=== PATIENT | female | born 1940 | race Caucasian/White ===

== ENCOUNTER 2020-02-15 21:00 | Emergency (ER) | payer MEDICARE ==
[~2020-02-15] VITALS: Ht 149.9 cm; Wt 65.0 kg
[2020-02-15 21:07] VITALS: TEMP 97.4
[2020-02-15 21:27] LABS: BASO # 0.1 (0.0-0.2); BASO % 0.6 % (0.0-2.0); EOS # 0.2 (0.0-0.7); EOS % 1.6 % (0-4.0); GRAN # 7.2 (1.4-6.5); GRAN % 76.6 % (42.2-75.2); HEMATOCRIT 43.8 % (37.0-47.0); HEMOGLOBIN 14.5 g/dl (12.5-16.0); LYMPH # 1.3 (1.2-3.4); LYMPH % 14.2 % (20.0-51.0); MEAN CELL VOLUME 93 fl (80.0-100.0); MEAN CORPUSCULAR HEMOGLOBIN 31 pg (27.0-31.0); MEAN CORPUSCULAR HGB CONC 33 g/dl (33.0-37.0); MEAN PLATELET VOLUME 9.7 fl (7.4-10.4); MONO # 0.6 (0.1-0.6); MONO % 6.5 % (1.7-9.3); PLATELET COUNT 211 K/mm3 (130-400); REDCELL DISTRIBUTION WIDTH-CV 14.6 % (11.5-14.5)
[2020-02-15 21:37] LABS: ALANINE AMINOTRANSFERASE 11 U/L (4-34); ALBUMIN 4.8 gm/dL (3.5-5.0); ALKALINE PHOSPHATASE 123 U/L (50-136); ANION GAP 11 mmol/L (7-16); AST,SGOT 22 U/L (15-37); BILIRUBIN,TOTAL 0.5 mg/dL (0.0-1.0); BLOOD UREA NITROGEN 25 mg/dL (7-17); CALCIUM 10.9 mg/dL (8.4-10.2); CARBON DIOXIDE 29 mmol/L (22-30); CHLORIDE 99 mmol/L (98-107); CREATININE, serum 0.95 (0.52-1.25); GLUCOSE 190 mg/dL (74-106); POTASSIUM 4.4 mmol/L (3.4-5.0); SODIUM 138 mmol/L (137-145); TOTAL PROTEIN 8.1 gm/dL (6.4-8.2)
[2020-02-15 21:40] LABS: INR 0.9 (0.8-3.0); PROTHROMBIN TIME 10.5 SECONDS (9.7-12.8)
[2020-02-15 21:43] LABS: PARTIAL THROMBOPLASTIN TIME 33.8 SECONDS (26.0-37.0)
[2020-02-15 21:51] LABS: TROPONIN-I < 0.012 ng/mL (0.000-0.035)
[2020-02-16 01:30] VITALS: BP 191/89; PULSE 60
== END 2020-02-16 01:30 | disposition home or self-care (01) ==
LOC: COL.ER 21:00
PROVIDERS: Emergency Medicine
DX: K44.9 Diaphragmatic hernia without obstruction or gangrene (principal); R10.13 Epigastric pain; Z98.61 Coronary angioplasty status; Z87.74 Personal history of (corrected) congenital malformations of heart and circulatory system
CPT/HCPCS: J7030; Q9967

== ENCOUNTER 2021-07-06 13:54 | Inpatient (IN) | payer MEDICARE ==
[~2021-07-06] VITALS: Ht 149.9 cm; Wt 63.6 kg
[2021-07-06] VITALS (288 sets, daily range): BP systolic 154–176; BP diastolic 52–73; PULSE 38–40; TEMP 97.6–97.8; O2SAT 86–100
[2021-07-06 15:23] LABS: BASO # 0.1 K/mm3 (0.0-0.2); BASO % 0.9 % (0.0-2.0); EOS # 0.1 K/mm3 (0.0-0.7); GRAN # 3.7 K/mm3 (1.4-6.5); HEMATOCRIT 41.8 % (37.0-47.0); HEMOGLOBIN 13.8 g/dl (12.5-16.0); LYMPH # 1.2 K/mm3 (1.2-3.4); LYMPH % 21.4 % (20.0-51.0); MEAN CELL VOLUME 93 fl (80.0-100.0); MEAN CORPUSCULAR HEMOGLOBIN 31 pg (27-31); MEAN CORPUSCULAR HGB CONC 33 g/dl (33.0-37.0); MEAN PLATELET VOLUME 9.8 fl (7.4-10.4); MONO # 0.5 K/mm3 (0.1-0.6); MONO % 8.3 % (1.7-9.3); PLATELET COUNT 193 K/mm3 (130-400); RED BLOOD COUNT 4.48 M/mm3 (4.10-5.30); REDCELL DISTRIBUTION WIDTH-CV 14.6 % (11.5-14.5)
[2021-07-06 15:46] LABS: INR 1.1 (0.8-3.0); PROTHROMBIN TIME 11.7 SECONDS (9.7-12.8)
[2021-07-06 15:47] LABS: ALANINE AMINOTRANSFERASE 12 U/L (0-55); ALBUMIN 4.1 gm/dL (3.4-4.8); ALKALINE PHOSPHATASE 101 U/L (40-150); ANION GAP 11 mmol/L (7-16); AST,SGOT 17 U/L (5-34); BILIRUBIN,TOTAL 0.5 mg/dL (0.2-1.2); BLOOD UREA NITROGEN 14 mg/dL (10-20); CALCIUM 10.3 mg/dL (8.4-10.2); CARBON DIOXIDE 22 mmol/L (23-31); CHLORIDE 104 mmol/L (98-107); CREATININE, serum 1.02 mg/dL (0.57-1.11); GLUCOSE 116 mg/dL (70-99); SODIUM 137 mmol/L (136-145); TOTAL PROTEIN 7.4 gm/dL (6.2-8.1)
[2021-07-06 15:48] LABS: PARTIAL THROMBOPLASTIN TIME 32.9 SECONDS (26.0-37.0)
[2021-07-06 15:55] LABS: TROPONIN-I < 0.010 ng/mL (0.00-0.033)
--- NOTE | 2021-07-06 16:35 | NUR ---
RECEIVED REPORT FROM TANVI ZAMORA IN ER. AWAITING ARRIVAL OF PT TO ICU 5.
--- NOTE | 2021-07-06 16:48 | NUR ---
PT ARRVIES TO ICU 5 VIA STRETCHER AND TRASNFERS SELF TO ICU BED, STEADY GAIT NOTED. PT ON RA. PLACED ON BEDSIDE CONTINUOUS MONITOR. VSS. CALL LIGHT WITHIN REACH, DEMONSTRATES UNDERSTANDING OF USE. TYRON, SISTER IN LAW BROUGHT TO BEDSIDE AND EXPLAINED VISITING POLICY TO PT AND TYRON, VERBALIZED UNDERSTANDING. PT'S PURSE PLACED IN CABINET IN ROOM. CELLPHONE REMAINS IN PT'S POSSESSION.
[2021-07-06] MEDS ORDERED: LEVOXYL0.075 MG PO (17:28)
[2021-07-06] MEDS ORDERED: DIOVAN320 MG PO (17:29)
[2021-07-06] MEDS ORDERED: HCTZ12.5TAB PO (17:29)
[2021-07-06] MEDS ORDERED: WELLBUTRIN XL150 MG PO (17:32)
[2021-07-06] MEDS ORDERED: PRILOSEC 20MG20 MG PO (17:33)
[2021-07-06] MEDS ORDERED: VITAMIN D250 MCG PO (17:34)
[2021-07-06] MEDS ORDERED: OCUVITE1 TA1 PO (17:34)
[2021-07-06] MEDS ORDERED: NORVASC 10MG10 MG PO (17:37)
[2021-07-06] MEDS ORDERED: DESYREL 50MG50 MG PO (17:38)
[2021-07-06] MEDS ORDERED: ZYLOPRIM 100MG100 MG PO (17:39)
[2021-07-06] MEDS ORDERED: ZYRTEC 10MG10 MG PO (17:40)
[2021-07-06] MEDS ORDERED: STOOL SOFTENER100 M2 PO (17:40)
[2021-07-06] MEDS ORDERED: NORCO 325 MG-7.1 TAB PO (17:41)
[2021-07-07] VITALS (573 sets, daily range): BP systolic 132–166; BP diastolic 57–99; PULSE 33–59; TEMP 97.5–97.8; O2SAT 78–100
[2021-07-07 06:45] LABS: CALCIUM 10.1 mg/dL (8.4-10.2); CREATININE, serum 0.88 mg/dL (0.57-1.11)
--- NOTE | 2021-07-07 07:00 | NUR ---
RECEIVED REPORT FROM TANVI BURGOS. PT SITTING UP IN BED WATCHING TV ON RA. VSS. CALL LIGHT WITHIN REACH.
--- NOTE | 2021-07-07 09:57 | NUR ---
SW met with pt who stated her preference to return home once medically stable. The pt states she lives at home, alone. She is a . The pt states she is independent on all ADLs and does use a blood pressure cup. The pt states she does not have a DPOA, but would like to complete one. The pt PCP is Mary Montes and [facility]. Pt completed DPOA-HC and RN & SW witness and pt placed Bob Kerr [phone] as DPOA-HC and Jessica, daughter as altrnate [phone]. SW placed copy in chart and gave pt 3 copies.
[2021-07-08] VITALS (139 sets, daily range): BP systolic 39–181; BP diastolic 24–96; PULSE 32–120; TEMP 34.4–34.6; O2SAT 36–100
[2021-07-08 06:19] LABS: HEMOGLOBIN 12.4 g/dl (12.5-16.0); MEAN CELL VOLUME 92 fl (80.0-100.0); MEAN CORPUSCULAR HEMOGLOBIN 31 pg (27-31); MEAN CORPUSCULAR HGB CONC 34 g/dl (33.0-37.0); MEAN PLATELET VOLUME 9.8 fl (7.4-10.4); PLATELET COUNT 174 K/mm3 (130-400); RED BLOOD COUNT 4.02 M/mm3 (4.10-5.30); REDCELL DISTRIBUTION WIDTH-CV 14.4 % (11.5-14.5)
[2021-07-08 06:35] LABS: CALCIUM 10.3 mg/dL (8.4-10.2); CREATININE, serum 1.14 mg/dL (0.57-1.11); POTASSIUM 4.7 mmol/L (3.5-4.5)
[2021-07-08 06:36] LABS: HEMATOCRIT 36.9 % (37.0-47.0)
--- NOTE | 2021-07-08 10:56 | NUR ---
Commercial Loan Collection Officer contacted Hospitalist and requested PT/OT orders.
--- NOTE | 2021-07-08 13:35 | NUR ---
SEE MERGE FOR ALL MEDICATION ADMINISTRATION TIMES/DOSAGES AND INTRA/POST PROCEDURE SEDATION ASSESSMENT.
--- NOTE | 2021-07-08 16:00 | NUR ---
Pt arrived with CathLab team. Pt lethargic, able to follow commands but unable to answer orientation questions. Hypotension noted, MD Jacob notified of pt arrival. Pt's son Bob at bedside. Education provided on plan. Levophed initated to IV started by CVL RN to right antecubital. Shortly after initiating gtt, pt begain complaining of pain to IV site, gtt paused and IV was unable to flush and was leaking. MD Kiah called for central line placement ordered by MD Jacob. MD Shanice called and notifed of pt status, MD states he will be by to assess pt soon. Multiple attempts made to start peripheral IV - 3 different staff memebers with a total of 6 attempts made with no success (pt's prior IVs were compromised in cathlab) 1630 MD Kiah at bedside - obtained consent from pt's son Bob. Time out completed, all in agreement. 1635 MD Shanice at bedside - pericardiocentesis catheter stopcock unclamped by MD Shanice and set to depended drainage - drainage bag began to quickly drain bright red blood. MD Shanice requesting pt be transfered to higher level of care - Electronic News Gathering Editor at bedside and has began the transfer process Central line OK for use stated by MD Kiah at 1650. Levophed and IV fluid boluses initiated. 1710 Vasopressin gtt added - Anesthesia paged for Arterial line placement - consent obtained from Bob 1745 CONCRETE SMOOTHER at bedside for line placement. Timeout completed - all in agreement 1800 Pt awake alert and oriented asking "what happended" pt educated and states understanding. 1800 Bob encouraged by Electronic News Gathering Editor TANVI Downey to call in other family memebers who are local to be with pt. MD Jacob, TANVI Downey, Bob and myself discussed Code Status with pt - pt spoke with Bob and agreed to continue aggressive treatment, but change Code Status to DNR with no CPR or Intubation if necessary. 1837 NeoSynepherine gtt added d/t continued hypotension despite maximum Levophed dose 1900 Pt has [facility] team standing by, no facility has accepted pt transfer as of this time. 1900 A total of 1100mL of blood noted in pericardiocentesis drainage bag 191 Report given to TANVI James
[2021-07-08 17:04] LABS: BASO # 0.1 K/mm3 (0.0-0.2); BASO % 0.6 % (0.0-2.0); EOS % 0.3 % (0.0-4.0); GRAN # 9.2 K/mm3 (1.4-6.5); GRAN % 68.5 % (42.2-75.2); HEMOGLOBIN 11.6 g/dl (12.5-16.0); LYMPH # 3.1 K/mm3 (1.2-3.4); MEAN CELL VOLUME 95 fl (80.0-100.0); MEAN CORPUSCULAR HEMOGLOBIN 31 pg (27-31); MEAN CORPUSCULAR HGB CONC 33 g/dl (33.0-37.0); MEAN PLATELET VOLUME 9.7 fl (7.4-10.4); MONO # 0.9 K/mm3 (0.1-0.6); MONO % 6.4 % (1.7-9.3); PLATELET COUNT 220 K/mm3 (130-400); RED BLOOD COUNT 3.76 M/mm3 (4.10-5.30); REDCELL DISTRIBUTION WIDTH-CV 14.6 % (11.5-14.5)
[2021-07-08 17:10] LABS: HEMATOCRIT 35.6 % (37.0-47.0)
[2021-07-08 17:30] LABS: ALBUMIN 3.4 gm/dL (3.4-4.8); BILIRUBIN,TOTAL 0.7 mg/dL (0.2-1.2); CALCIUM 9.9 mg/dL (8.4-10.2); CREATININE, serum 1.56 mg/dL (0.57-1.11); POTASSIUM 4.7 mmol/L (3.5-4.5); TOTAL PROTEIN 5.6 gm/dL (6.2-8.1)
--- NOTE | 2021-07-08 18:00 | NUR ---
16F Amaro Catheter inserted by TANVI Rucker - clear yellow urine return noted - pt tolerated insertion well
--- NOTE | 2021-07-08 18:53 | NUR ---
Pt's daughter, son-in-law and son at bedside
[2021-07-08 19:43] LABS: HEMATOCRIT 37.8 % (37.0-47.0); HEMOGLOBIN 11.8 g/dl (12.5-16.0)
[2021-07-08 19:59] LABS: INR 1.6 (0.8-3.0); PROTHROMBIN TIME 17.6 SECONDS (9.7-12.8)
--- NOTE | 2021-07-08 20:55 | NUR ---
Verbal order obtained from Carleen LINDER and Dr. James to increase epi gtt to 0.1.
[2021-07-08 21:12] LABS: ARTERIAL BLD GAS O2 SATURATION 97.8 % (92-100); ARTERIAL BLD GAS TCO2 CT 9.1; ARTERIAL BLOOD GAS BASE EXCESS -19.7 (-2-2); ARTERIAL BLOOD GAS HCO3 8.3 meq/L (22-26); ARTERIAL BLOOD GAS PCO2 26.8 mmHg (35-45); ARTERIAL BLOOD GAS PO2 120.8 mmHg (80-100)
[2021-07-08 21:14] LABS: ARTERIAL BLOOD GAS pH 7.11 (7.35-7.45)
--- NOTE | 2021-07-08 22:30 | NUR ---
1899 Report received from TANVI Marquis. Patient family at bedside. Dr. James and Carleen LINDER in unit. Patient current on levophed, vasopressin, and neosynephrine. Assessment complete. Lung sounds are diminished. Patient reporting pain from laying flat. Patient has right femoral TLC in place. Pericardial drain bag full. 1900: Unit of FFP started 1929: Pericardial drainage bag changed. Unable to obtain temp on patient. Rectal temp probe placed. Patient temp 94 degrees. Obtaining jarrett hugger per verbal order from Carleen LINDER. Labs and ABG drawn. 1947: Unit of PRBC started for patient per orders from Dr. James. 1999: ABG results back. ph 7.1. Patient given sodium bicarb push per verbal orders from Dr. James and Carleen LINDER. 2010: Ddimer results given to Dr. James while in room. 2033: Another unit of FFP started per orders. 2039: Patient reporting shortness of breath. Patient lung sounds wheezing. Per Carleen place on bipap. Respiratory contacted and in room placing bipap. Patient on 55% fiO2. 2044: [facility] arrived. Report was given to TANVI Gibbs. 2099: Unit of PRBC obtained and given to [facility] Nurse. TANVI Gibbs. Also mixed gtts to send with [facility]. 2144: [facility]isted [facility] with transfer of patient onto stretcher. 2202: [facility] leaving. 0: Report called to TANVI Ventura and Yancy Cristina. During this time. Family remained at bedside with patient. Family was given updates as new information arrived. All questions answered.
== END 2021-07-08 22:03 | disposition short-term general hospital (02) | DRG 242 ==
LOC: COL.ER 13:54 → ICU 14:59
PROVIDERS: Emergency Medicine; Internal Medicine; ADMIT Internal Medicine
PROC: 0JH606Z Insertion of Pacemaker, Dual Chamber into Chest Subcutaneous Tissue and Fascia, Open Approach (ICD-10-PCS; principal; 2021-07-08)
PROC: 02H63JZ Insertion of Pacemaker Lead into Right Atrium, Percutaneous Approach (ICD-10-PCS; 2021-07-08)
PROC: 02HK3JZ Insertion of Pacemaker Lead into Right Ventricle, Percutaneous Approach (ICD-10-PCS; 2021-07-08)
PROC: 0W9D30Z Drainage of Pericardial Cavity with Drainage Device, Percutaneous Approach (ICD-10-PCS; 2021-07-08)
PROC: 06HM33Z Insertion of Infusion Device into Right Femoral Vein, Percutaneous Approach (ICD-10-PCS; 2021-07-08)
PROC: 5A09357 Assistance with Respiratory Ventilation, Less than 24 Consecutive Hours, Continuous Positive Airway Pressure (ICD-10-PCS; 2021-07-08)
DX: I44.2 Atrioventricular block, complete (principal); R57.8 Other shock; J96.01 Acute respiratory failure with hypoxia; Q21.0 Ventricular septal defect; I31.3 Pericardial effusion (noninflammatory); D62 Acute posthemorrhagic anemia; I08.3 Combined rheumatic disorders of mitral, aortic and tricuspid valves; I95.9 Hypotension, unspecified; S43.429A Sprain of unspecified rotator cuff capsule, initial encounter; Z20.822 Contact with and (suspected) exposure to COVID-19; R00.1 Bradycardia, unspecified; I10 Essential (primary) hypertension; E03.9 Hypothyroidism, unspecified; E87.70 Fluid overload, unspecified; F32.A Depression, unspecified; G89.29 Other chronic pain; M54.9 Dorsalgia, unspecified; E78.5 Hyperlipidemia, unspecified; X58.XXXA Exposure to other specified factors, initial encounter
CPT/HCPCS: 99222-AI; 99231-AI; 99233-AI; 99239; J0690; J1650; J2250; J2370; J2597; J3010; J7030; J7050; J7060; J7120; L1830; P9016

== ENCOUNTER 2021-11-19 17:49 | Observation (INO) | payer MEDICARE ==
[~2021-11-19] VITALS: Ht 149.9 cm; Wt 57.2 kg
[~2021-11-19 17:49] MED LIST: DESYREL 50MG50 MG PO; DIOVAN320 MG PO; HCTZ12.5TAB PO; LEVOXYL0.075 MG PO; NORCO 325 MG-7.1 TAB PO; NORVASC 10MG10 MG PO; OCUVITE1 TA1 PO; PRILOSEC 20MG20 MG PO; STOOL SOFTENER100 M2 PO; VITAMIN D31000 I1 PO; WELLBUTRIN XL150 MG PO; ZYLOPRIM 100MG100 MG PO; ZYRTEC 10MG10 MG PO
[2021-11-19 19:58] LABS: BASO % 0.6 % (0.0-2.0); EOS # 0.1 K/mm3 (0.0-0.7); EOS % 1.1 % (0.0-4.0); GRAN # 5.2 K/mm3 (1.4-6.5); GRAN % 73.9 % (42.2-75.2); HEMATOCRIT 35.3 % (37.0-47.0); HEMOGLOBIN 10.9 g/dl (12.5-16.0); LYMPH # 0.9 K/mm3 (1.2-3.4); LYMPH % 13.4 % (20.0-51.0); MEAN CELL VOLUME 72 fl (80.0-100.0); MEAN CORPUSCULAR HEMOGLOBIN 22 pg (27-31); MEAN CORPUSCULAR HGB CONC 31 g/dl (33.0-37.0); MEAN PLATELET VOLUME 8.9 fl (7.4-10.4); MONO # 0.8 K/mm3 (0.1-0.6); MONO % 10.7 % (1.7-9.3); PLATELET COUNT 291 K/mm3 (130-400); RED BLOOD COUNT 4.88 M/mm3 (4.10-5.30); REDCELL DISTRIBUTION WIDTH-CV 21.7 % (11.5-14.5)
[2021-11-19 20:00] VITALS: BP 147/86; PULSE 88; TEMP 98.3
[2021-11-19 20:17] LABS: ALANINE AMINOTRANSFERASE 15 U/L (0-55); ALKALINE PHOSPHATASE 82 U/L (40-150); ANION GAP 13 mmol/L (7-16); AST,SGOT 29 U/L (5-34); BILIRUBIN,TOTAL 0.8 mg/dL (0.2-1.2); BLOOD UREA NITROGEN 18 mg/dL (10-20); CALCIUM 9.9 mg/dL (8.4-10.2); CARBON DIOXIDE 22 mmol/L (23-31); CHLORIDE 96 mmol/L (98-107); CREATININE, serum 0.88 mg/dL (0.57-1.11); GLUCOSE 112 mg/dL (70-99); POTASSIUM 3.7 mmol/L (3.5-4.5); SODIUM 131 mmol/L (136-145); TOTAL PROTEIN 7.2 gm/dL (6.2-8.1)
[2021-11-19 20:24] LABS: TROPONIN-I < 0.010 ng/mL (0.00-0.033)
[2021-11-19] MEDS ORDERED: ZEBETA10 MG PO (23:03)
[2021-11-19] MEDS ORDERED: DIOVAN 80MG80 MG PO (23:12)
[2021-11-20] VITALS (7 sets, daily range): BP systolic 132–151; BP diastolic 69–77; PULSE 85–104; TEMP 97.6–98.3
[2021-11-20 03:36] LABS: COLLECTION METHOD CLEAN CATCH
[2021-11-20 03:46] LABS: PH 7 (5-8); SQUAMOUS EPITHELIAL 0-2 /hpf (0-10); URINE APPEARANCE Clear (CLEAR/HAZY); URINE BACTERIA None Seen /hpf (NONE SEEN); URINE BILIRUBIN Negative (NEGATIVE); URINE BLOOD Negative (NEGATIVE); URINE COLOR Yellow (YELLOW); URINE GLUCOSE Negative (NEGATIVE); URINE KETONE Negative (NEGATIVE); URINE LEUKOCYTE ESTERASE Negative (NEGATIVE); URINE NITRATE Negative (NEGATIVE); URINE PROTEIN(semi-quant) Negative (NEGATIVE); URINE RBC 0-2 /hpf (0-2); URINE UROBILINOGEN Negative (NEGATIVE)
[2021-11-20 05:21] LABS: BASO % 0.7 % (0.0-2.0); EOS % 0.7 % (0.0-4.0); GRAN # 4.4 K/mm3 (1.4-6.5); GRAN % 71.9 % (42.2-75.2); HEMOGLOBIN 10.2 g/dl (12.5-16.0); LYMPH # 0.9 K/mm3 (1.2-3.4); LYMPH % 14.8 % (20.0-51.0); MEAN CELL VOLUME 74 fl (80.0-100.0); MEAN CORPUSCULAR HEMOGLOBIN 23 pg (27-31); MEAN CORPUSCULAR HGB CONC 31 g/dl (33.0-37.0); MEAN PLATELET VOLUME 8.6 fl (7.4-10.4); MONO # 0.7 K/mm3 (0.1-0.6); MONO % 11.6 % (1.7-9.3); PLATELET COUNT 239 K/mm3 (130-400); RED BLOOD COUNT 4.44 M/mm3 (4.10-5.30); REDCELL DISTRIBUTION WIDTH-CV 21.4 % (11.5-14.5)
[2021-11-20 05:22] LABS: HEMATOCRIT 32.8 % (37.0-47.0)
[2021-11-20 05:40] LABS: CALCIUM 9.2 mg/dL (8.4-10.2); CREATININE, serum 0.75 mg/dL (0.57-1.11); POTASSIUM 3.7 mmol/L (3.5-4.5)
--- NOTE | 2021-11-20 06:10 | NUR ---
THE PATIENT HAS HAD AN UNEVENTFUL EVENING. DURING THE NIGHT THE PATIENT DID PULL OUT THE PERIPHERAL IV THAT THE ED STARTED. NEW IV WAS STARTED IN THE LEFT FOREARM WITH OUT DIFFICULTY. THE PATIENT TOLERATED WELL. NO OTHER CONCERNS. FLUIDS AND MEDS GIVEN PER JUL. WILL REPORT TO DAY SHIFT RN.
--- NOTE | 2021-11-20 09:59 | NUR ---
The patient has had increased weakness and multiple falls at home. She had a fall two nights ago and spent the night on the floor. She had to crawl to a window to get her son's attention. Family reports that the patient is on the waitlist at [facility] for assisted living. SW attempted to contact the patient's son, Bob (ph#[phone]), to discuss discharge plan. SW left him a voicemail. JUANITO then contacted the patient's daugher, Jessica Zapata (ph#[phone]), to complete intake. The patient lives alone in [place]. Bob and Jessica also live in town. Jessica reports that the patient has had a significant decline this last month and has been needing assistance with ADLs this past week and has been using a walker. She does not have any home health services. The patient's PCP is Dr. Adelso Lopez and her DPOA-HC is in EMR. It designates her son, Bob. The alternate is her daughter, Jessica. With the patient's increased falls, JUANITO discussed placement. Due to the patient being observation status, JUANITO informed Jessica how SNF would be private pay. Jessica verbalized understanding and states that her family will do what they have to. She states that her and her brother work, so they are not able to stay with the patient at home. She states that the patient is not safe to be at home alone. She is open to SW sending referrals to the local facilities. JUANITO then received a phone call back from the patient's brother, Bob. JUANITO updated Bob on the above. Bob expressed his frustrations with the patient being observation status and having to private pay. He states that they will have to figure out how to pay or what to do. He reports that he will talk to his family. SW to fax referrals to [facility], Lisa GRUBER.
--- NOTE | 2021-11-20 10:00 | NUR ---
Pt doing okay this morning. Pain medication was given as pt stated that she does have increase in pain with activity. No other needs verbalized. Pt is sitting up on the side of the bed.
--- NOTE | 2021-11-20 11:32 | NUR ---
Jeana: Amish Situation: Rehabilitation Counsellor stopped by room on rounds Background: PT seemed content, First day so trying to figure out all that she needs Assessment: PT appreciated the visit Recommendations: Rehabilitation Counsellor will follow up as needed
--- NOTE | 2021-11-20 11:54 | NUR ---
SW consulted IPR Director, Evette.
--- NOTE | 2021-11-20 13:00 | NUR ---
Pt doing well. Pt stated that she is not having any pain. She does have a visitor with her, no needs or complaints
--- NOTE | 2021-11-20 15:37 | NUR ---
Wen, at [facility], reports that they have clinically accept the patient. They would just need to talk to the patient's family about finances, if family chooses to come to them.
--- NOTE | 2021-11-20 18:26 | NUR ---
Pt has continued to do well today. IV fluids continue to infuse to left forearm. Pt has had no complaints today
[2021-11-21 04:27] VITALS: BP 146/77; PULSE 16; PULSE 97; TEMP 97.4
[2021-11-21 07:08] LABS: CALCIUM 9.1 mg/dL (8.4-10.2); CREATININE, serum 0.94 mg/dL (0.57-1.11); MAGNESIUM 2.1 mg/dL (1.6-2.6); POTASSIUM 3.5 mmol/L (3.5-4.5)
[2021-11-21 07:30] VITALS: BP 148/85; PULSE 97; TEMP 97.9
--- NOTE | 2021-11-21 08:00 | NUR ---
PT RESTING IN BED. MORNING MEDICATIONS GIVEN. SHIFT ASSESSMENT COMPLETED. PT IS CONFUSED WHERE SHE IS THIS MORNING UPON WAKING UP. ANSWERS QUESTIONS APPROPRIATELY. ORIENTED TO SELF, TIME, AND DATE. REPORTING MILD BACK PAIN AT THIS TIME. WILL CONTINUE TO MONITOR.
[2021-11-21 12:16] VITALS: BP 138/71; PULSE 96; TEMP 98.3
--- NOTE | 2021-11-21 12:55 | NUR ---
Evette, IPR Director, reports that they are able to accept the patient today. JUANITO updated the patient's son, Bob. Bob is in agreement to the plan. The patient is to discharge today, 11/21, to [facility]. No additional needs at this time.
--- NOTE | 2021-11-21 13:38 | NUR ---
WILL D/C PT FROM SYSTEM AND ADMIT UNDER IPR STATUS.
[2021-11-21] MEDS ORDERED: WELLBUTRIN XL300 M1 PO (15:48)
== END 2021-11-21 13:49 ==
LOC: COL.ER 17:49 → MEDICAL 19:26
PROVIDERS: Nurse Practitioner; Student in an Organized Health Care Education/Training Program; ADMIT Internal Medicine
DX: R53.81 Other malaise (principal); R29.6 Repeated falls; M48.061 Spinal stenosis, lumbar region without neurogenic claudication; E87.1 Hypo-osmolality and hyponatremia; I44.30 Unspecified atrioventricular block; I31.3 Pericardial effusion (noninflammatory); I10 Essential (primary) hypertension; G89.29 Other chronic pain; M54.50 Low back pain, unspecified; Z79.899 Other long term (current) drug therapy; E03.9 Hypothyroidism, unspecified; F32.A Depression, unspecified; M10.9 Gout, unspecified
CPT/HCPCS: G0378; J7030

== ENCOUNTER → 2021-12-11 | Outpatient (CLI) | payer MEDICARE ==
[~2021-12-11] MED LIST changes: +DIOVAN 80MG80 MG PO; +WELLBUTRIN XL300 M1 PO; +ZEBETA10 MG PO
== END ==
LOC: MHCPAIN 12:58
DX: M54.50 Low back pain, unspecified (principal); M48.061 Spinal stenosis, lumbar region without neurogenic claudication; M41.80 Other forms of scoliosis, site unspecified; M47.816 Spondylosis without myelopathy or radiculopathy, lumbar region
CPT/HCPCS: G0463

== ENCOUNTER → 2021-12-16 | Outpatient (CLI) | payer MEDICARE | LOC: MHCPAIN 08:08 | DX: M47.816 Spondylosis without myelopathy or radiculopathy, lumbar region (principal); M53.3 Sacrococcygeal disorders, not elsewhere classified; M54.16 Radiculopathy, lumbar region | CPT/HCPCS: J1100; Q9967 ==

== ENCOUNTER → 2022-01-15 | Outpatient (CLI) | payer MEDICARE | LOC: MHCPAIN 13:39 | DX: M54.50 Low back pain, unspecified (principal); M48.061 Spinal stenosis, lumbar region without neurogenic claudication; M41.80 Other forms of scoliosis, site unspecified; M47.816 Spondylosis without myelopathy or radiculopathy, lumbar region | CPT/HCPCS: G0463 ==

== ENCOUNTER → 2022-03-18 | Outpatient (CLI) | payer MEDICARE | LOC: MHCPAIN 15:01 | DX: M54.50 Low back pain, unspecified (principal); M48.061 Spinal stenosis, lumbar region without neurogenic claudication; M47.816 Spondylosis without myelopathy or radiculopathy, lumbar region; M25.551 Pain in right hip | CPT/HCPCS: G0463 ==

== ENCOUNTER → 2022-03-18 | Outpatient (CLI) | payer MEDICARE | LOC: COL.RAD 16:20 | DX: M16.0 Bilateral primary osteoarthritis of hip (principal) ==

== ENCOUNTER 2022-06-20 19:38 | Emergency (ER) | payer MEDICARE ==
[~2022-06-20] VITALS: Ht 149.9 cm; Wt 59.1 kg
[2022-06-20 19:54] VITALS: TEMP 98.2
[2022-06-20 22:19] LABS: BASO # 0.1 K/mm3 (0.0-0.2); BASO % 1.1 % (0.0-2.0); EOS % 0.5 % (0.0-4.0); GRAN # 4.5 K/mm3 (1.4-6.5); GRAN % 81.7 % (42.2-75.2); LYMPH # 0.6 K/mm3 (1.2-3.4); MEAN CELL VOLUME 72 fl (80.0-100.0); MEAN CORPUSCULAR HGB CONC 30 g/dl (33.0-37.0); MEAN PLATELET VOLUME 8.3 fl (7.4-10.4); MONO # 0.3 K/mm3 (0.1-0.6); MONO % 5.3 % (1.7-9.3); PLATELET COUNT 355 K/mm3 (130-400); RED BLOOD COUNT 3.65 M/mm3 (4.10-5.30); REDCELL DISTRIBUTION WIDTH-CV 18.9 % (11.5-14.5)
[2022-06-20 22:20] LABS: HEMATOCRIT 26.2 % (37.0-47.0); HEMOGLOBIN 7.8 g/dl (12.5-16.0); MEAN CORPUSCULAR HEMOGLOBIN 21 pg (27-31)
[2022-06-20 22:35] LABS: ALBUMIN 3.8 gm/dL (3.4-4.8); BILIRUBIN,TOTAL 0.3 mg/dL (0.2-1.2); CALCIUM 9.2 mg/dL (8.4-10.2); CREATININE, serum 1.22 mg/dL (0.57-1.11); POTASSIUM 3.4 mmol/L (3.5-4.5); TOTAL PROTEIN 6.8 gm/dL (6.2-8.1)
[2022-06-21 00:22] LABS: COLLECTION METHOD CLEAN CATCH
[2022-06-21 00:26] LABS: PH 5.5 (5.0-8.5); URINE APPEARANCE Clear (CLEAR/HAZY); URINE BLOOD Negative (NEGATIVE); URINE COLOR Yellow (YELLOW); URINE GLUCOSE Negative (NEGATIVE); URINE KETONE TRACE (NEGATIVE); URINE NITRATE Negative (NEGATIVE); URINE PROTEIN(semi-quant) 1+ (NEGATIVE); URINE UROBILINOGEN 0.2 E.U/dL (0.2-1.0)
[2022-06-21 00:31] LABS: MUCOUS Present (NOT PRESENT); URINE BACTERIA Rare /hpf (NONE SEEN)
[2022-06-21] MEDS ORDERED: MACROBID 1100 MG/CAP PO (00:53)
[2022-06-21 01:31] VITALS: BP 151/86; PULSE 98
== END 2022-06-21 01:31 | disposition home or self-care (01) ==
LOC: COL.ER 19:38
PROVIDERS: Physician Assistant
DX: M54.50 Low back pain, unspecified (principal); G89.29 Other chronic pain; F11.90 Opioid use, unspecified, uncomplicated; D50.9 Iron deficiency anemia, unspecified
CPT/HCPCS: J2270; J7030

== ENCOUNTER → 2022-06-23 | Outpatient (CLI) | payer MEDICARE ==
[~2022-06-23] MED LIST changes: +MACROBID 1100 MG/CAP PO
== END ==
LOC: MHCPAIN
DX: M47.816 Spondylosis without myelopathy or radiculopathy, lumbar region (principal); M54.16 Radiculopathy, lumbar region
CPT/HCPCS: J1100; Q9967

== ENCOUNTER 2022-07-04 11:31 | Emergency (ER) | payer MEDICARE ==
[~2022-07-04] VITALS: Ht 149.9 cm; Wt 60.0 kg
[2022-07-04 14:53] LABS: BASO # 0.1 K/mm3 (0.0-0.2); BASO % 0.5 % (0.0-2.0); EOS # 0.1 K/mm3 (0.0-0.7); EOS % 0.5 % (0.0-4.0); GRAN # 10.7 K/mm3 (1.4-6.5); GRAN % 83.4 % (42.2-75.2); LYMPH # 0.8 K/mm3 (1.2-3.4); LYMPH % 6.1 % (20.0-51.0); MEAN CELL VOLUME 69 fl (80.0-100.0); MEAN CORPUSCULAR HGB CONC 30 g/dl (33.0-37.0); MEAN PLATELET VOLUME 8.7 fl (7.4-10.4); MONO # 1.2 K/mm3 (0.1-0.6); PLATELET COUNT 355 K/mm3 (130-400); RED BLOOD COUNT 4.33 M/mm3 (4.10-5.30); REDCELL DISTRIBUTION WIDTH-CV 18.6 % (11.5-14.5)
[2022-07-04 15:11] LABS: ALBUMIN 3.3 gm/dL (3.4-4.8); BILIRUBIN,TOTAL 0.9 mg/dL (0.2-1.2); CALCIUM 9.9 mg/dL (8.4-10.2); CREATININE, serum 1.03 mg/dL (0.57-1.11); POTASSIUM 4.7 mmol/L (3.5-4.5); TOTAL PROTEIN 6.8 gm/dL (6.2-8.1)
[2022-07-04 15:14] LABS: HEMATOCRIT 29.7 % (37.0-47.0); HEMOGLOBIN 8.9 g/dl (12.5-16.0); MEAN CORPUSCULAR HEMOGLOBIN 21 pg (27-31)
[2022-07-04 15:30] LABS: COLLECTION METHOD CLEAN CATCH
[2022-07-04 15:38] LABS: MUCOUS Present (NOT PRESENT); PH 5.5 (5.0-8.5); SQUAMOUS EPITHELIAL 0-2 /hpf (0-10); URINE APPEARANCE Clear (CLEAR/HAZY); URINE BACTERIA None Seen /hpf (NONE SEEN); URINE BLOOD Negative (NEGATIVE); URINE COLOR Amber (YELLOW); URINE GLUCOSE Negative (NEGATIVE); URINE KETONE Negative (NEGATIVE); URINE NITRATE Negative (NEGATIVE); URINE PROTEIN(semi-quant) TRACE (NEGATIVE); URINE RBC 0-2 /hpf (0-2)
[2022-07-04 16:09] VITALS: BP 171/88; PULSE 67; TEMP 98
[2022-07-05] MEDS ORDERED: DIOVAN320 MG PO (03:19)
[2022-07-05] MEDS ORDERED: NORVASC2.5 MG PO (03:23)
[2022-07-05] MEDS ORDERED: ZYRTEC SYRUP1 MG/ML PO (03:23)
[2022-07-05] MEDS ORDERED: PROZAC 20MG20 MG PO (03:25)
[2022-07-05] MEDS ORDERED: TYLENOL SU325 MG/SUP RC (03:26)
[2022-07-05] MEDS ORDERED: GENTLE LAXATIVE10 MG RC (03:26)
[2022-07-05] MEDS ORDERED: MYLANTA MAXIMU355 M1 PO (03:27)
[2022-07-05] MEDS ORDERED: MILK OF MA400 MG/52 PO (03:27)
[2022-07-05] MEDS ORDERED: IMODIUM 2MG CAPS2 MG PO (03:27)
[2022-07-05] MEDS ORDERED: TYLENOL 325MG325 MG PO (03:28)
== END 2022-07-04 16:10 | disposition home or self-care (01) ==
LOC: COL.ER 11:31
PROVIDERS: Nurse Practitioner
DX: M54.50 Low back pain, unspecified (principal); G89.29 Other chronic pain; D72.829 Elevated white blood cell count, unspecified; E87.1 Hypo-osmolality and hyponatremia
CPT/HCPCS: J3010

== ENCOUNTER 2022-07-04 23:57 | Inpatient (IN) | payer MEDICARE ==
[~2022-07-04] VITALS: Ht 149.9 cm; Wt 65.3 kg
[2022-07-05 00:33] LABS: BASO % 0.3 % (0.0-2.0); EOS % 0.1 % (0.0-4.0); GRAN # 12.3 K/mm3 (1.4-6.5); GRAN % 86.8 % (42.2-75.2); LYMPH # 0.5 K/mm3 (1.2-3.4); LYMPH % 3.8 % (20.0-51.0); MEAN CELL VOLUME 69 fl (80.0-100.0); MEAN CORPUSCULAR HGB CONC 30 g/dl (33.0-37.0); MEAN PLATELET VOLUME 8.5 fl (7.4-10.4); MONO # 1.2 K/mm3 (0.1-0.6); MONO % 8.4 % (1.7-9.3); PLATELET COUNT 346 K/mm3 (130-400); RED BLOOD COUNT 4.27 M/mm3 (4.10-5.30); REDCELL DISTRIBUTION WIDTH-CV 18.8 % (11.5-14.5)
[2022-07-05 00:36] LABS: HEMATOCRIT 29.3 % (37.0-47.0); HEMOGLOBIN 8.8 g/dl (12.5-16.0); MEAN CORPUSCULAR HEMOGLOBIN 21 pg (27-31)
[2022-07-05 00:48] LABS: ALBUMIN 3.3 gm/dL (3.4-4.8); CALCIUM 9.6 mg/dL (8.4-10.2); CREATININE, serum 0.94 mg/dL (0.57-1.11); POTASSIUM 4.8 mmol/L (3.5-4.5); TOTAL PROTEIN 6.6 gm/dL (6.2-8.1)
[2022-07-05 01:08] LABS: BILIRUBIN,TOTAL 1.2 mg/dL (0.2-1.2)
[2022-07-05 01:11] LABS: TROPONIN-I 0.014 ng/mL (0.00-0.033); TSH w REFLEX 2.034 uIU/mL (0.350-4.940)
[2022-07-05 03:00] LABS: INR 1.2 (0.8-3.0); PROTHROMBIN TIME 14.3 SECONDS (9.7-12.8)
[2022-07-05 03:03] LABS: PARTIAL THROMBOPLASTIN TIME 24.4 SECONDS (26.0-37.0)
[2022-07-05 03:12] LABS: C-REACTIVE PROTEIN 14.43 mg/dL (0.00-0.50); PHOSPHOROUS 2.1 mg/dL (2.3-4.7)
[2022-07-05 03:14] LABS: ARTERIAL BLD GAS O2 SATURATION 97.8 % (92-100); ARTERIAL BLD GAS TCO2 CT 21.8; ARTERIAL BLOOD GAS BASE EXCESS -2.4 (-2-2); ARTERIAL BLOOD GAS HCO3 20.9 meq/L (22-26); ARTERIAL BLOOD GAS PCO2 29.9 mmHg (35-45); ARTERIAL BLOOD GAS PO2 100.4 mmHg (80-100); ARTERIAL BLOOD GAS pH 7.46 (7.35-7.45)
[2022-07-05] MEDS ORDERED: DIOVAN320 MG PO (03:19)
[2022-07-05] MEDS ORDERED: ZYRTEC SYRUP1 MG/ML PO (03:23)
[2022-07-05] MEDS ORDERED: NORVASC2.5 MG PO (03:23)
[2022-07-05 03:25] VITALS: BP 145/63; PULSE 83; TEMP 97.5
[2022-07-05] MEDS ORDERED: PROZAC 20MG20 MG PO (03:25)
[2022-07-05] MEDS ORDERED: TYLENOL SU325 MG/SUP RC (03:26)
[2022-07-05] MEDS ORDERED: GENTLE LAXATIVE10 MG RC (03:26)
[2022-07-05] MEDS ORDERED: MYLANTA MAXIMU355 M1 PO (03:27)
[2022-07-05] MEDS ORDERED: IMODIUM 2MG CAPS2 MG PO (03:27)
[2022-07-05] MEDS ORDERED: MILK OF MA400 MG/52 PO (03:27)
[2022-07-05] MEDS ORDERED: TYLENOL 325MG325 MG PO (03:28)
[2022-07-05 07:46] VITALS: BP 131/55; PULSE 83; TEMP 97.7
[2022-07-05 11:22] VITALS: BP 114/48; PULSE 90; TEMP 98.1
--- NOTE | 2022-07-05 12:56 | NUR ---
JUANITO attempted to met with patient to complete intake, but was informed SW should call son Bob Kerr [phone] alt is daughter Jessica Bergman. Son states that patient currently lives at [facility] at [facility] and has total assistance PCP is Dr. Lopez and pharmacy is what [facility] utilizes. Son provides patient will return to [facility] upon DC. SW will continue to follow. DC plan: back to [facility]
--- NOTE | 2022-07-05 13:30 | NUR ---
Initial visit: Pt was resting and content. Pt has no needs right now. Wire Bound Box Machine Helper will follow up as needed
[2022-07-05 15:38] VITALS: BP 109/48; PULSE 83; TEMP 97.6
--- NOTE | 2022-07-05 18:00 | NUR ---
Scheduled medications given. Shift assessment performed. PRN tylenol given twice this shift for "back spasms." VSS. Patient Alert and answers orientations questions correctly, but conversation is confused at times. Heparin gtt running as ordered. Amaro catheter in place, no kinks in tubing, securement device in place. Currenlty requiring 3L of O2 via nasal cannula. Patient is currently resting in bed. Denies any further pain, discomfort, SOA, or further needs at this time. Call light in reach. Fall percautions in place.
[2022-07-05 20:50] VITALS: BP 129/64; PULSE 104; TEMP 97.4
[2022-07-05 23:35] VITALS: BP 147/74; PULSE 88; TEMP 98.1
[2022-07-06 04:32] VITALS: BP 141/68; PULSE 88; TEMP 97.9
[2022-07-06 06:18] LABS: BASO % 0.3 % (0.0-2.0); EOS # 0.1 K/mm3 (0.0-0.7); EOS % 0.5 % (0.0-4.0); GRAN % 84.8 % (42.2-75.2); LYMPH # 0.7 K/mm3 (1.2-3.4); LYMPH % 5.2 % (20.0-51.0); MEAN CELL VOLUME 69 fl (80.0-100.0); MEAN CORPUSCULAR HGB CONC 30 g/dl (33.0-37.0); MEAN PLATELET VOLUME 8.4 fl (7.4-10.4); MONO # 1.1 K/mm3 (0.1-0.6); MONO % 8.4 % (1.7-9.3); PLATELET COUNT 303 K/mm3 (130-400); RED BLOOD COUNT 3.59 M/mm3 (4.10-5.30); REDCELL DISTRIBUTION WIDTH-CV 18.3 % (11.5-14.5)
[2022-07-06 06:23] LABS: HEMATOCRIT 24.6 % (37.0-47.0); HEMOGLOBIN 7.3 g/dl (12.5-16.0); MEAN CORPUSCULAR HEMOGLOBIN 20 pg (27-31)
[2022-07-06 06:34] LABS: CALCIUM 9.2 mg/dL (8.4-10.2); CHOLESTEROL RISK RATIO 2.6; CREATININE, serum 0.86 mg/dL (0.57-1.11); POTASSIUM 3.6 mmol/L (3.5-4.5)
[2022-07-06 07:55] VITALS: BP 130/80; PULSE 81; TEMP 97.7
--- NOTE | 2022-07-06 10:51 | NUR ---
Shift assessment performed. Scheduled medications given. Patient Alert and answers questions appropriately, but conversation can be confused. Patient up with physical therapy, 1 assist, but unable to follow commands. Heparing gtt running as ordered. Currently requiring 4.5L of O2 via nasal cannula. VSS. Patient given PRN tylenol for reported "back spasms". Amaro catheter in place, urine yellow and clear. Securment device in place, no kinks in tubing. Patient currently resting in bed, no s/s of pain, discomfort, or further needs at this time. Call light in reach. Fall percautions in place.
[2022-07-06 11:29] VITALS: BP 128/61; PULSE 72; TEMP 97.7
--- NOTE | 2022-07-06 11:49 | NUR ---
Heparin gtt infiltrated in left forearm. IV DC'd, leodan wrap applied for compression. Limb elevated. Patient denies any pain to the site, skin intact. Will continue to monitor.
--- NOTE | 2022-07-06 11:53 | NUR ---
O2 reduced to 3L via oxy mask.
--- NOTE | 2022-07-06 12:20 | NUR ---
UPON ENTRANCE TO ROOM PATIENT WAS NOT WEARING O2. O2 SATS CHECKED, PATIENT WAS 93% ON RA.
--- NOTE | 2022-07-06 12:43 | NUR ---
Hydraulic Lift Driver rounds: Hydraulic Lift Driver visit attempted. Patient was sleeping.
[2022-07-06 14:45] LABS: HEMATOCRIT 25.9 % (37.0-47.0); HEMOGLOBIN 7.3 g/dl (12.5-16.0)
[2022-07-06 15:14] VITALS: BP 131/76; PULSE 75; TEMP 98
--- NOTE | 2022-07-06 18:00 | NUR ---
Patient has had an ok day. PRN tylenol given frequently for "back spasms." Kpad in use which patient states has helped reduce pain. Patient currenlty sitting up on edge of bed. Denies any further pain, discomfort, SOA, or further needs at this time. Call light in reach. Fall percautions in place.
[2022-07-06 20:00] VITALS: BP 125/53; PULSE 79; TEMP 97.6
[2022-07-06 23:17] VITALS: BP 127/70; PULSE 80; TEMP 98.1
[2022-07-07 03:08] VITALS: BP 138/69; PULSE 83; TEMP 98.8
[2022-07-07 06:33] LABS: BASO % 0.2 % (0.0-2.0); EOS # 0.1 K/mm3 (0.0-0.7); EOS % 0.4 % (0.0-4.0); GRAN # 9.8 K/mm3 (1.4-6.5); GRAN % 87.5 % (42.2-75.2); LYMPH # 0.6 K/mm3 (1.2-3.4); LYMPH % 5.4 % (20.0-51.0); MEAN CELL VOLUME 69 fl (80.0-100.0); MEAN CORPUSCULAR HGB CONC 29 g/dl (33.0-37.0); MEAN PLATELET VOLUME 8.7 fl (7.4-10.4); MONO # 0.6 K/mm3 (0.1-0.6); MONO % 5.7 % (1.7-9.3); PLATELET COUNT 355 K/mm3 (130-400); RED BLOOD COUNT 3.69 M/mm3 (4.10-5.30); REDCELL DISTRIBUTION WIDTH-CV 18.5 % (11.5-14.5)
[2022-07-07 06:35] LABS: HEMATOCRIT 25.6 % (37.0-47.0); HEMOGLOBIN 7.4 g/dl (12.5-16.0); MEAN CORPUSCULAR HEMOGLOBIN 20 pg (27-31)
[2022-07-07 06:49] LABS: CALCIUM 8.9 mg/dL (8.4-10.2); CREATININE, serum 0.81 mg/dL (0.57-1.11); POTASSIUM 3.2 mmol/L (3.5-4.5)
[2022-07-07 08:17] VITALS: BP 149/68; PULSE 83; TEMP 97.6
--- NOTE | 2022-07-07 10:00 | NUR ---
Initial visit; Patient stated she is glad to see Dining Room Server who offered encouragement and prayer. Patient liked the prayer and was glad Dining Room Server mentioned putting a blanked around her, she was shivering and hadn't thought of a cover.
--- NOTE | 2022-07-07 10:28 | NUR ---
SHIFT ASSESSMENT COMPLETED AND MORNING MEDICATIONS ADMINISTERED PER ORDER. PATIENT IS ALERT AND ORIENTED X4. C/O "BACK SPASMS," PRN APAP OFFERED, PATIETN DECLINED. MRI CANCELLED THIS MORNING DUE TO BROKEN EQUIPMENT PER A R SPECIALIST, HOSPITALIST UPDATED. PATIENT TO DISCHARGE TODAY. DENIES ANY NEEDS AT THIS TIME. CALL LIGHT WITHIN REACH.
[2022-07-07] MEDS ORDERED: ELIQUIS 5MG PO (10:33)
[2022-07-07] MEDS ORDERED: LASIX 20MG TABL20 MG PO (10:34)
[2022-07-07 12:12] VITALS: BP 128/55; PULSE 92; TEMP 97.9
--- NOTE | 2022-07-07 12:28 | NUR ---
The patient is to discharge today, 07/07, back to [facility] for long-term care. Transportation was scheduled around 1330, via [facility]. SW informed the patient's son, Bob, and the community resource consultant of the transport time. No additional needs at this time.
[2022-07-07 13:18] VITALS: BP 128/55; PULSE 92; TEMP 97.9
--- NOTE | 2022-07-07 13:52 | NUR ---
PATIENT DISCHARGED PER ORDER. IV TO RIGHT FOREARM REMOVED WITH CATHETER INTACT, NO BLEEDING NOTED, GAUZE DRESSING APPLIED. VORA CATHETER REMOVED PER ORDER, PATIENT TOLERATED WELL. PATIENT HAS NOT VOIDED YET, CURRENTLY 30 MINUTES POST VORA REMOVAL. REPORT GIVEN TO TANVI PERRIN AT [facility]. PER DR. CHAVARRIA, PATIENT IS OKAY TO DISCHARGE TO [facility] WITHOUT VOIDING FIRST, MARYCHUY AT [facility] UPDATED WHO IS AGREEABLE AND DENIES FURTHER QUESTIONS.
== END 2022-07-07 14:00 | DRG 175 ==
LOC: COL.ER 23:57 → MEDICAL 07-05 02:20
PROVIDERS: Emergency Medicine; Nurse Practitioner Family; Student in an Organized Health Care Education/Training Program; ADMIT Internal Medicine
DX: I26.99 Other pulmonary embolism without acute cor pulmonale (principal); G92.8 Other toxic encephalopathy; J96.01 Acute respiratory failure with hypoxia; E87.1 Hypo-osmolality and hyponatremia; J90 Pleural effusion, not elsewhere classified; F19.230 Other psychoactive substance dependence with withdrawal, uncomplicated; I82.432 Acute embolism and thrombosis of left popliteal vein; I44.2 Atrioventricular block, complete; Z66 Do not resuscitate; R65.10 Systemic inflammatory response syndrome (SIRS) of non-infectious origin without acute organ dysfunction; G89.29 Other chronic pain; M54.50 Low back pain, unspecified; E03.9 Hypothyroidism, unspecified; G47.00 Insomnia, unspecified; D72.829 Elevated white blood cell count, unspecified; K44.9 Diaphragmatic hernia without obstruction or gangrene; F10.90 Alcohol use, unspecified, uncomplicated; K21.9 Gastro-esophageal reflux disease without esophagitis; E87.5 Hyperkalemia; E87.6 Hypokalemia; I11.0 Hypertensive heart disease with heart failure; D50.9 Iron deficiency anemia, unspecified; I50.9 Heart failure, unspecified; Z20.822 Contact with and (suspected) exposure to COVID-19; M10.9 Gout, unspecified; F32.A Depression, unspecified; Z79.890 Hormone replacement therapy; Z95.0 Presence of cardiac pacemaker; Z88.8 Allergy status to other drugs, medicaments and biological substances; Z23 Encounter for immunization
CPT/HCPCS: OP; J0696; J1644; J1940; J2270; Q9967

== ENCOUNTER 2022-07-09 03:05 | Emergency (ER) | payer MEDICARE ==
[~2022-07-09] VITALS: Ht 121.9 cm; Wt 68.2 kg
[~2022-07-09 03:05] MED LIST changes: +ELIQUIS 5MG PO; +GENTLE LAXATIVE10 MG RC; +IMODIUM 2MG CAPS2 MG PO; +LASIX 20MG TABL20 MG PO; +MILK OF MA400 MG/52 PO; +MYLANTA MAXIMU355 M1 PO; +NORVASC2.5 MG PO; +PROZAC 20MG20 MG PO; +TYLENOL 325MG325 MG PO; +TYLENOL SU325 MG/SUP RC; +ZYRTEC SYRUP1 MG/ML PO
[2022-07-09 03:18] VITALS: TEMP 98
[2022-07-09 03:50] LABS: COLLECTION METHOD CLEAN CATCH
[2022-07-09 03:54] LABS: PH 6.5 (5.0-8.5); URINE APPEARANCE Clear (CLEAR/HAZY); URINE BLOOD Negative (NEGATIVE); URINE COLOR Yellow (YELLOW); URINE GLUCOSE Negative (NEGATIVE); URINE KETONE Negative (NEGATIVE); URINE NITRATE Negative (NEGATIVE); URINE PROTEIN(semi-quant) TRACE (NEGATIVE); URINE UROBILINOGEN 0.2 E.U/dL (0.2-1.0)
[2022-07-09 04:00] LABS: SQUAMOUS EPITHELIAL None Seen /hpf (0-10); URINE BACTERIA Rare /hpf (NONE SEEN)
[2022-07-09 04:07] LABS: TRICYCLIC ANTIDEPRESS URINE NEGATIVE
[2022-07-09 04:21] LABS: BASO % 0.4 % (0.0-2.0); EOS # 0.1 K/mm3 (0.0-0.7); EOS % 1.7 % (0.0-4.0); GRAN # 6.9 K/mm3 (1.4-6.5); LYMPH # 0.7 K/mm3 (1.2-3.4); LYMPH % 8.1 % (20.0-51.0); MEAN CELL VOLUME 69 fl (80.0-100.0); MEAN CORPUSCULAR HGB CONC 29 g/dl (33.0-37.0); MEAN PLATELET VOLUME 8.5 fl (7.4-10.4); MONO # 0.6 K/mm3 (0.1-0.6); MONO % 7.3 % (1.7-9.3); PLATELET COUNT 406 K/mm3 (130-400); RED BLOOD COUNT 4.12 M/mm3 (4.10-5.30); REDCELL DISTRIBUTION WIDTH-CV 18.8 % (11.5-14.5)
[2022-07-09 04:26] LABS: HEMATOCRIT 28.6 % (37.0-47.0); HEMOGLOBIN 8.3 g/dl (12.5-16.0); MEAN CORPUSCULAR HEMOGLOBIN 20 pg (27-31)
[2022-07-09 04:36] LABS: INR 2.5 (0.8-3.0); PROTHROMBIN TIME 29.4 SECONDS (9.7-12.8)
[2022-07-09 04:39] LABS: PARTIAL THROMBOPLASTIN TIME 33.4 SECONDS (26.0-37.0)
[2022-07-09 04:42] LABS: ALANINE AMINOTRANSFERASE 44 U/L (0-55); ALBUMIN 3.4 gm/dL (3.4-4.8); ALKALINE PHOSPHATASE 95 U/L (40-150); ANION GAP 12 mmol/L (7-16); AST,SGOT 20 U/L (5-34); BILIRUBIN,TOTAL 0.6 mg/dL (0.2-1.2); BLOOD UREA NITROGEN 23 mg/dL (10-20); CALCIUM 9.6 mg/dL (8.4-10.2); CARBON DIOXIDE 24 mmol/L (23-31); CHLORIDE 95 mmol/L (98-107); CREATINE KINASE 44 U/L (29-168); CREATININE, serum 1.03 mg/dL (0.57-1.11); GLUCOSE 91 mg/dL (70-99); POTASSIUM 3.8 mmol/L (3.5-4.5); SODIUM 131 mmol/L (136-145)
[2022-07-09 04:44] LABS: ALCOHOL(ethanol),MEDICAL < 10 mg/dL (0-10)
[2022-07-09 04:48] LABS: TROPONIN-I < 0.010 ng/mL (0.00-0.033)
[2022-07-09 06:00] VITALS: BP 111/61; PULSE 67
== END 2022-07-09 06:05 | disposition home or self-care (01) ==
LOC: COL.ER 03:05
PROVIDERS: Emergency Medicine
DX: D64.9 Anemia, unspecified (principal); J96.91 Respiratory failure, unspecified with hypoxia; J90 Pleural effusion, not elsewhere classified; R40.4 Transient alteration of awareness; Z95.0 Presence of cardiac pacemaker; Z99.81 Dependence on supplemental oxygen; Z79.01 Long term (current) use of anticoagulants; W19.XXXA Unspecified fall, initial encounter